=== PATIENT | male | born 1985 | race African-American/Black ===

== ENCOUNTER 2019-02-05 16:14 | Emergency (ER) | payer SELFPAY ==
[~2019-02-05] VITALS: Ht 170 cm; Wt 86.3 kg
--- NOTE | 2019-02-05 16:51 | Diagnostic Imaging Report ---
EXAMINATION: Right foot radiographs, 2 views. COMPARISON: None. HISTORY: 33-year-old male, glass injury. FINDINGS: There is no radiographically visible foreign body. It should be noted that glass may not be radiopaque. There is no identified cortical or aggressive bone destruction. There is no identified acute fracture. The joint spaces are well preserved. There is no particularly prominent focal soft tissue swelling. IMPRESSION: 1. No radiopaque foreign body. It should be noted that glass may not be radiographically visible. 2. No identified acute bony abnormality. Dictated by: Dictated on workstation # [id number]
--- NOTE | 2019-02-05 16:54 | NUR ---
DR GASTELUM AT BEDSIDE W/ PT
--- NOTE | 2019-02-05 17:37 | NUR ---
DR ALBA STILL AT BEDSIDE.
--- NOTE | 2019-02-05 17:44 | ED General ---
General Chief Complaint: Foreign Body Stated Complaint: GLASS IN R FOOT Nursing Triage Note: PT REPORTS HAS GLASS IN LT FOOT X3 WKS AFTER A GLASS TABLE BROKE AT HOME. Nursing Sepsis Screen: No Definite Risk Source of Information: Patient Exam Limitations: No Limitations History of Present Illness Date Seen by Provider: Feb 05, 2019 Time Seen by Provider: 16:20 Initial Comments This 33-year-old gentleman presents to the emergency room with pain in the ball of his left foot where he says he stepped on a shard of glass after breaking a lamp. Pain has been bothering him for about 3 weeks. He has pain anytime he puts pressure on his foot. He is quite certain that he has a shard of glass in his skin and he has developed a small callused area where this has occurred. No foreign body can be seen. Allergies and Home Medications Allergies Coded Allergies: No Known Drug Allergies (Unverified , 02/05/19) Patient Home Medication List Home Medication List Reviewed: Yes Review of Systems Review of Systems Constitutional: no symptoms reported EENTM: no symptoms reported Respiratory: no symptoms reported Cardiovascular: no symptoms reported Gastrointestinal: no symptoms reported Genitourinary: no symptoms reported Musculoskeletal: no symptoms reported Skin: see HPI Psychiatric/Neurological: No Symptoms Reported Hematologic/Lymphatic: No Symptoms Reported Past Lzlbwmx-Vqbaga-Vkinzb Hx Past Med/Social Hx: Reviewed Nursing Past Med/Soc Hx Patient Social History Alcohol Use: Denies Use Recreational Drug Use: No Smoking Status: Current Everyday Smoker Recent Foreign Travel: No Contact w/Someone Who Travel: No Recent Infectious Disease Expo: No Recent Hopitalizations: No Seasonal Allergies Seasonal Allergies: No Past Medical History Surgeries: No Respiratory: No Cardiac: No Neurological: No Genitourinary: No Gastrointestinal: No Musculoskeletal: No Endocrine: No HEENT: No Cancer: No Psychosocial: No Integumentary: No Physical Exam Vital Signs Vital Signs - First Documented 02/05/19 16:17 Temp 36.8 Pulse 62 Resp 18 B/P (MAP) 130/82 (98) Pulse Ox 98 O2 Delivery Room Air Capillary Refill : Less Than 3 Seconds Height, Weight, BMI Height: '" Weight: lbs. oz. kg; 29.00 BMI Method: General Appearance: No Apparent Distress, WD/WN HEENT: Normal ENT Inspection Extremity: Other (small tender callused area on the ball of the left foot) Neurologic/Psychiatric: Alert, Oriented x3, No Motor/Sensory Deficits, Normal Mood/Affect Skin: Normal Color, Warm/Dry, Other (see extremity exam) Procedures/Interventions Progress Foreign body removal procedure. Skin was cleansed with chlorhexidine wipes. The area in question was then pared down using a combination of forceps, scalpel, and hypodermic needles. I continued to pare down the region until a tiny hair-like foreign body fragment was identified and removed. The foreign body was firm, approximately the thickness of a human hair, and 1-2 mm in length. Skin was repeatedly cleaned throughout the process with alcohol wipes. Patient reported complete relief of pain after the procedure. Progress/Results/Core Measures Suspected Sepsis Recent Fever Within 48 Hours: No Infection Criteria Present: None New/Unexplained Altered Menta: No Sepsis Screen: No Definite Risk SIRS Temperature: Pulse: 62 Respiratory Rate: 18 Blood Pressure 130 /82 Mean: 98 Results/Orders My Orders Orders - JACKSON GASTELUM MD Foot, Right, 2 View (02/05/19 16:25) Vital Signs/I&O 02/05/19 02/05/19 16:17 17:50 Temp 36.8 Pulse 62 0 Resp 18 0 B/P (MAP) 130/82 (98) 0/0 Pulse Ox 98 0 O2 Delivery Room Air Capillary Refill : Less Than 3 Seconds Blood Pressure Mean: 98 POS Departure Impression Primary Impression: Foreign body in skin Disposition: 01 HOME, SELF-CARE Condition: Improved Departure-Patient Inst. Decision time for Depature: 17:42 Referrals: NO,LOCAL PHYSICIAN (PCP/Family) Primary Care Physician Patient Instructions: Foreign Body in Skin Add. Discharge Instructions: To encourage any further foreign body to express itself from the skin, you may use corn pads or any other type of pad that is circumferential around the affect ed area. You may also soak your foot for about 15 minutes twice a day to keep the skin soft. Monitor the area for signs of infection such as increasing redness, increasing swelling, increasing pain, puslike drainage or fever. Please return to care if you notice any of these symptoms. Follow-up with your primary care provider if your treatment today does not resolve your pain. All discharge instructions reviewed with patient and/or family. Voiced understanding. JACKSON GASTELUM MD Feb 05, 2019 17:44 POS
[2019-02-05 17:50] VITALS: BP 0/0
== END 2019-02-05 17:50 | disposition home or self-care (01) ==
LOC: ER 16:16
DX: S90.852A Superficial foreign body, left foot, initial encounter (principal); F17.200 Nicotine dependence, unspecified, uncomplicated; W25.XXXA Contact with sharp glass, initial encounter
CPT/HCPCS: 28190; 73620